=== PATIENT | female | born 1970 | race Caucasian/White ===

== ENCOUNTER 2017-06-07 12:03 | Emergency (ER) | payer OTHER ==
[~2017-06-07] VITALS: Ht 167.6 cm; Wt 131.5 kg
[2017-06-07 12:03] VITALS: BP 142/98
[~2017-06-07 12:03] MED LIST: AMBIEN 10 MG TA10 MG PO; AMOXICILLIN 50500 M1 PO; ANXIETY MED; ATIVAN1 MG PO; AUGMENTIN 875875 M1 PO; BENTYL20 MG PO; CELEXA; CILOXAN5 ML OP; CIPROFLOXACIN500 M1 PO; DARVOCET-N 1001 EACH PO; ESCITALOPRAM OX20 MG PO; FLAGYL500 MG PO; FLEXERIL PO; HYDROCHLOROTH12.5 MG PO; HYDROCHLOROTHIA25 M1 PO; IBUPROFEN 600600 M1 PO; IBUPROFEN 800800 M1 PO; LEVOTHROID125 MCG PO; LEVOTHYROXIN0.125 M1 PO; LISINOPRIL20 MG PO; MEDROLDOSEPACK PO; NAPROSYN500 MG PO; NORCO 5-325 TA1 EACH PO; NORFLEX100 MG PO; PAROXETINE HCL20 MG PO; PEPCID40 MG PO; PERMETHRIN60 GM TOP; PHENERGAN 25 MG25 MG PO; PREDNISONE 20 M20 MG PO; PREDNISONE50 MG PO; TESSALON PERLE100 MG PO; TRAMADOL 50 MG50 MG PO; ULTRAM 50MG TAB50 MG PO; VALIUM5 MG PO; VISTARIL 25 MG25 M1 PO; ZESTORETIC 10-1 EAC1 PO; ZESTORETIC 20-1 EACH PO
[2017-06-07] MEDS ORDERED: SYNTHROID150 MCG PO (12:16)
[2017-06-07] MEDS ORDERED: MOBIC7.5 MG PO (13:01)
== END 2017-06-07 13:46 | disposition home or self-care (01) ==
LOC: ER 12:03
DX: S93.402A Sprain of unspecified ligament of left ankle, initial encounter (principal); I10 Essential (primary) hypertension; E03.9 Hypothyroidism, unspecified; F41.9 Anxiety disorder, unspecified; F17.210 Nicotine dependence, cigarettes, uncomplicated; Z90.49 Acquired absence of other specified parts of digestive tract; Z87.442 Personal history of urinary calculi; Z88.8 Allergy status to other drugs, medicaments and biological substances; Z88.5 Allergy status to narcotic agent; Z88.6 Allergy status to analgesic agent; W01.0XXA Fall on same level from slipping, tripping and stumbling without subsequent striking against object, initial encounter; Y93.89 Activity, other specified; Y92.238 Other place in hospital as the place of occurrence of the external cause; Y99.8 Other external cause status

== ENCOUNTER 2018-12-22 17:26 | Emergency (ER) | payer OTHER ==
[~2018-12-22] VITALS: Ht 167.6 cm; Wt 149.7 kg
[~2018-12-22 17:26] MED LIST changes: +MOBIC7.5 MG PO; +SYNTHROID150 MCG PO
[2018-12-22 17:51] LABS: URINE BILIRUBIN NEGATIVE (Negative); URINE BLOOD NEGATIVE (Negative); URINE CLARITY CLEAR; URINE COLOR YELLOW; URINE GLUCOSE-RANDOM* NEGATIVE (Negative); URINE KETONES NEGATIVE (Negative); URINE LEUKOCYTES-REFLEX NEGATIVE (Negative); URINE NITRITE-REFLEX NEGATIVE (Negative); URINE PROTEIN (DIPSTICK) NEGATIVE (Negative); URINE SPECIFIC GRAVITY >= 1.030 (1.005-1.035); URINE UROBILINOGEN 0.2 E.U./dl (0.2-1.0)
[2018-12-22 17:56] LABS: ABSOLUTE NEUTROPHILS 10.2 thou/uL (1.4-8.2); BASOPHILS 1.3 % (0.0-2.0); EOSINOPHILS 5.3 % (0.0-3.0); HEMATOCRIT 43.7 % (37.0-47.0); HEMOGLOBIN 14.4 gm/dL (12.0-15.0); MCH 27.8 pg (26.0-34.0); MCHC 32.9 g/dL (28.0-37.0); MCV 84.4 fL (80.0-100.0); MONOCYTES 6.2 % (1.0-8.0); PLATELET COUNT 344 thou/uL (150-400); POLYS 69.2 % (36.0-66.0); RBC 5.17 mil/uL (4.20-5.00); RDW 14.8 % (10.5-14.5); WBC 14.8 thou/uL (4.0-11.0)
[2018-12-22 18:04] LABS: CALCIUM 9.3 mg/dL (8.5-10.1); CREATININE 0.8 mg/dL (0.6-1.0); POTASSIUM 3.7 mmol/L (3.5-5.1)
[2018-12-22 18:10] LABS: ALBUMIN 3.6 g/dL (3.4-5.0); TOTAL BILIRUBIN 0.7 mg/dL (<0.1-1.0)
[2018-12-22] MEDS ORDERED: METFORMIN HCL500 MG PO (18:25)
[2018-12-22] MEDS ORDERED: VERAPAMIL E.R240 M1 PO (18:26)
[2018-12-22] MEDS ORDERED: PROPRANOLOL 1010 MG PO (18:27)
[2018-12-22] MEDS ORDERED: HYZAAR 100-12.1 EACH PO (18:27)
[2018-12-22] MEDS ORDERED: PHENERGAN 25 MG25 M1 PO (19:41)
[2018-12-22] MEDS ORDERED: BENTYL 20 MG TA20 M1 PO (19:41)
[2018-12-22 20:28] VITALS: BP 118/60
== END 2018-12-22 20:27 | disposition home or self-care (01) ==
LOC: ER 17:26
PROVIDERS: Physician Assistant
DX: D72.829 Elevated white blood cell count, unspecified (principal); R10.9 Unspecified abdominal pain; R19.7 Diarrhea, unspecified; R11.0 Nausea; E03.9 Hypothyroidism, unspecified; I10 Essential (primary) hypertension; F17.210 Nicotine dependence, cigarettes, uncomplicated; Z90.49 Acquired absence of other specified parts of digestive tract; Z87.442 Personal history of urinary calculi; Z88.5 Allergy status to narcotic agent; Z88.8 Allergy status to other drugs, medicaments and biological substances

== ENCOUNTER 2020-02-14 20:08 | Emergency (ER) | payer OTHER ==
[~2020-02-14] VITALS: Ht 167.6 cm; Wt 149.7 kg
[~2020-02-14 20:08] MED LIST changes: +BENTYL 20 MG TA20 M1 PO; +HYZAAR 100-12.1 EACH PO; +METFORMIN HCL500 MG PO; +PHENERGAN 25 MG25 M1 PO; +PROPRANOLOL 1010 MG PO; +VERAPAMIL E.R240 M1 PO
[2020-02-14] MEDS ORDERED: BENICAR40 MG PO (20:27)
[2020-02-14 20:28] LABS: URINE BILIRUBIN NEGATIVE (Negative); URINE BLOOD NEGATIVE (Negative); URINE CLARITY CLEAR; URINE COLOR YELLOW; URINE GLUCOSE-RANDOM* NEGATIVE (Negative); URINE KETONES NEGATIVE (Negative); URINE LEUKOCYTES-REFLEX NEGATIVE (Negative); URINE NITRITE-REFLEX NEGATIVE (Negative); URINE PROTEIN (DIPSTICK) NEGATIVE (Negative); URINE SPECIFIC GRAVITY 1.025 (1.005-1.035); URINE UROBILINOGEN 0.2 E.U./dl (0.2-1.0)
[2020-02-14 21:35] LABS: ABSOLUTE NEUTROPHILS 8.2 thou/uL (1.4-8.2); BASOPHILS 0.9 % (0.0-2.0); EOSINOPHILS 6.3 % (0.0-3.0); HEMATOCRIT 41.5 % (37.0-47.0); HEMOGLOBIN 13.8 gm/dL (12.0-15.0); LYMPHOCYTES 23.2 % (24.0-44.0); MCH 28.7 pg (26.0-34.0); MCHC 33.4 g/dL (28.0-37.0); MCV 86.1 fL (80.0-100.0); MONOCYTES 7.7 % (1.0-8.0); PLATELET COUNT 382 thou/uL (150-400); POLYS 61.9 % (36.0-66.0); RBC 4.82 mil/uL (4.20-5.00); RDW 14.3 % (10.5-14.5); WBC 13.2 thou/uL (4.0-11.0)
[2020-02-14 21:45] LABS: CALCIUM 8.8 mg/dL (8.5-10.1); POTASSIUM 3.9 mmol/L (3.5-5.1)
[2020-02-14 21:53] LABS: ALBUMIN 3.5 g/dL (3.4-5.0); TOTAL BILIRUBIN 0.5 mg/dL (<0.1-1.0)
[2020-02-14] MEDS ORDERED: ULTRAM 50MG TAB50 MG PO (23:40)
[2020-02-14] MEDS ORDERED: CIPROFLOXACIN500 M1 PO (23:40)
[2020-02-14] MEDS ORDERED: FLAGYL500 M1 PO (23:40)
[2020-02-14] MEDS ORDERED: ZOFRAN ODT4 MG PO (23:40)
[2020-02-14 23:51] VITALS: BP 124/56
== END 2020-02-14 23:53 | disposition home or self-care (01) ==
LOC: ER 20:08
PROVIDERS: Emergency Medicine
DX: R10.32 Left lower quadrant pain (principal); R11.2 Nausea with vomiting, unspecified; I10 Essential (primary) hypertension; F17.210 Nicotine dependence, cigarettes, uncomplicated; Z79.899 Other long term (current) drug therapy; Z88.6 Allergy status to analgesic agent; Z88.8 Allergy status to other drugs, medicaments and biological substances; Z90.49 Acquired absence of other specified parts of digestive tract

== ENCOUNTER 2020-05-18 00:43 | Emergency (ER) | payer OTHER ==
[~2020-05-18] VITALS: Ht 167.6 cm; Wt 149.7 kg
[~2020-05-18 00:43] MED LIST changes: +BENICAR40 MG PO; +FLAGYL500 M1 PO; +ZOFRAN ODT4 MG PO
[2020-05-18] MEDS ORDERED: ADVAIR 250-501 EACH INH (01:10)
[2020-05-18] MEDS ORDERED: PROAIR HFA8.5 GM INH (01:11)
[2020-05-18 01:30] LABS: URINE BILIRUBIN NEGATIVE (Negative); URINE BLOOD NEGATIVE (Negative); URINE CLARITY CLEAR; URINE COLOR YELLOW; URINE GLUCOSE-RANDOM* NEGATIVE (Negative); URINE KETONES NEGATIVE (Negative); URINE LEUKOCYTES-REFLEX NEGATIVE (Negative); URINE NITRITE-REFLEX NEGATIVE (Negative); URINE PROTEIN (DIPSTICK) NEGATIVE (Negative); URINE UROBILINOGEN 0.2 E.U./dl (0.2-1.0)
[2020-05-18 01:56] LABS: BASOPHILS 1.2 % (0.0-2.0); EOSINOPHILS 4.7 % (0.0-3.0); HEMATOCRIT 42.1 % (37.0-47.0); HEMOGLOBIN 13.7 gm/dL (12.0-15.0); LYMPHOCYTES 20.9 % (24.0-44.0); MCH 28.3 pg (26.0-34.0); MCHC 32.6 g/dL (28.0-37.0); MCV 86.9 fL (80.0-100.0); MONOCYTES 7.4 % (1.0-8.0); PLATELET COUNT 378 thou/uL (150-400); POLYS 65.8 % (36.0-66.0); RBC 4.85 mil/uL (4.20-5.00); RDW 14.7 % (10.5-14.5); WBC 16.8 thou/uL (4.0-11.0)
[2020-05-18 01:57] LABS: ANION GAP 13 mmol/L (7-16); BUN 14 mg/dL (7-18); CALCIUM 8.9 mg/dL (8.5-10.1); CHLORIDE 99 mmol/L (98-107); CO2 24 mmol/L (21-32); GLUCOSE 103 mg/dL (74-106); SODIUM 136 mmol/L (136-145)
[2020-05-18 02:06] LABS: ALBUMIN 3.5 g/dL (3.4-5.0); LIPASE 152 U/L (73-393); SGOT 18 U/L (15-37); SGPT 26 U/L (30-65); TOTAL BILIRUBIN 0.6 mg/dL (0.2-1.0); TOTAL PROTEIN 8.2 g/dL (6.4-8.2); TROPONIN-I <0.06 ng/mL (<0.06)
[2020-05-18] MEDS ORDERED: TRAMADOL 50 MG50 MG PO (04:37)
[2020-05-18] MEDS ORDERED: NAPROSYN500 MG PO (04:37)
[2020-05-18 05:06] VITALS: BP 109/71
--- NOTE | 2020-05-18 08:25 | EKG ---
[facility] [place] [address] ELECTROCARDIOGRAM REPORT Name: BHARATH MARRERO Room #: [facility]P [facility]#: [id number] Admission: 05/18/20 Attend Phys: Discharge: 05/18/20 Date of : 72 Report #: [id number] THIS REPORT FOR: cc: Graciela Jones Deborah C Lundgren,Elvin Alex MD [facility] THIS REPORT FOR: //name// [facility] ED Test Date: 2020-05-18 Test Time: 02:05:43 Pat Name: BHARATH MARRERO Department: Room: Gender: F Grey Percher: CHIP : 1970 Requested By: Manuel Santoro Order Number: [id number] MD: Elvin Serrano Measurements Intervals [place] Rate: 79 P: 5 UT: 178 QRS: 74 QRSD: 106 T: 13 QT: 396 QTc: 455 Interpretive Statements Sinus rhythm No significant abnormality Compared to ECG 09/27/2012 23:42:04 No significant change was found Electronically Signed On 05-18-2020 8:25:43 CDT by Elvin Serrano [email or web address] <ELECTRONICALLY SIGNED> By: Elvin Serrano MD, [facility] 05/18/2025 4 Elvin Serrano MD, [facility] /EPI
== END 2020-05-18 05:07 | disposition home or self-care (01) ==
LOC: ER 00:43
PROVIDERS: Emergency Medicine
DX: N83.202 Unspecified ovarian cyst, left side (principal); D72.829 Elevated white blood cell count, unspecified; R11.0 Nausea; F17.210 Nicotine dependence, cigarettes, uncomplicated; Z90.89 Acquired absence of other organs; Z79.899 Other long term (current) drug therapy; Z88.8 Allergy status to other drugs, medicaments and biological substances; Z88.5 Allergy status to narcotic agent

== ENCOUNTER 2020-06-30 15:29 | Emergency (ER) | payer OTHER ==
[~2020-06-30] VITALS: Ht 167.6 cm; Wt 158.8 kg
[~2020-06-30 15:29] MED LIST changes: +ADVAIR 250-501 EACH INH; +PROAIR HFA8.5 GM INH
[2020-06-30] MEDS ORDERED: ULTRAM 50MG TAB50 MG PO (17:40)
[2020-06-30 18:04] VITALS: BP 145/89
== END 2020-06-30 19:11 | disposition home or self-care (01) ==
LOC: ER 15:29
DX: M25.511 Pain in right shoulder (principal); I10 Essential (primary) hypertension; E03.9 Hypothyroidism, unspecified; F17.210 Nicotine dependence, cigarettes, uncomplicated; Z88.6 Allergy status to analgesic agent; Z88.5 Allergy status to narcotic agent; Z88.8 Allergy status to other drugs, medicaments and biological substances; Z87.442 Personal history of urinary calculi; Z90.49 Acquired absence of other specified parts of digestive tract

== ENCOUNTER 2020-08-21 11:17 | Emergency (ER) | payer OTHER ==
[~2020-08-21] VITALS: Ht 167.6 cm; Wt 161.9 kg
[2020-08-21] MEDS ORDERED: DOXYCYCLINE 10100 MG PO (13:28)
[2020-08-21] MEDS ORDERED: PERCOCET 5-3251 EACH PO (13:28)
[2020-08-21 13:50] VITALS: BP 106/59
== END 2020-08-21 13:54 | disposition home or self-care (01) ==
LOC: ER 11:17
DX: N73.9 Female pelvic inflammatory disease, unspecified (principal); I10 Essential (primary) hypertension; E03.9 Hypothyroidism, unspecified; F17.210 Nicotine dependence, cigarettes, uncomplicated; Z90.49 Acquired absence of other specified parts of digestive tract; Z90.89 Acquired absence of other organs; Z79.899 Other long term (current) drug therapy; Z88.5 Allergy status to narcotic agent; Z88.8 Allergy status to other drugs, medicaments and biological substances

== ENCOUNTER 2020-08-24 15:56 | Emergency (ER) | payer OTHER ==
[~2020-08-24] VITALS: Ht 167.6 cm; Wt 161.9 kg
[~2020-08-24 15:56] MED LIST changes: +DOXYCYCLINE 10100 MG PO; +PERCOCET 5-3251 EACH PO
[2020-08-24 16:00] VITALS: BP 144/79
== END 2020-08-24 16:11 | disposition home or self-care (01) ==
LOC: ER 15:56
DX: N73.9 Female pelvic inflammatory disease, unspecified (principal); Z48.01 Encounter for change or removal of surgical wound dressing; I10 Essential (primary) hypertension; E03.9 Hypothyroidism, unspecified; F41.9 Anxiety disorder, unspecified; F17.210 Nicotine dependence, cigarettes, uncomplicated; Z90.49 Acquired absence of other specified parts of digestive tract; Z98.890 Other specified postprocedural states; Z87.442 Personal history of urinary calculi; Z79.899 Other long term (current) drug therapy; Z88.8 Allergy status to other drugs, medicaments and biological substances; Z88.5 Allergy status to narcotic agent; Z88.6 Allergy status to analgesic agent

== ENCOUNTER 2020-10-07 18:45 | Emergency (ER) | payer OTHER ==
[~2020-10-07] VITALS: Ht 167.6 cm; Wt 149.7 kg
[2020-10-07 19:15] LABS: URINE BILIRUBIN NEGATIVE (Negative); URINE BLOOD NEGATIVE (Negative); URINE CLARITY SL CLOUDY; URINE COLOR YELLOW; URINE GLUCOSE-RANDOM* NEGATIVE (Negative); URINE KETONES NEGATIVE (Negative); URINE LEUKOCYTES-REFLEX NEGATIVE (Negative); URINE NITRITE-REFLEX NEGATIVE (Negative); URINE PROTEIN (DIPSTICK) NEGATIVE (Negative); URINE SPECIFIC GRAVITY >= 1.030 (1.005-1.035); URINE UROBILINOGEN 0.2 E.U./dl (0.2-1.0)
[2020-10-07] MEDS ORDERED: GLUCOPHAGE XR750 MG PO (19:18)
[2020-10-07] MEDS ORDERED: ADVAIR 250-501 EACH INH (19:19)
[2020-10-07] MEDS ORDERED: TRAMADOL 50 MG50 MG PO (19:20)
[2020-10-07] MEDS ORDERED: MEDROLDOSEPACK PO (20:33)
[2020-10-07 20:46] VITALS: BP 104/55
== END 2020-10-07 20:58 | disposition home or self-care (01) ==
LOC: ER 18:45
PROVIDERS: Nurse Practitioner
DX: M54.16 Radiculopathy, lumbar region (principal); F17.210 Nicotine dependence, cigarettes, uncomplicated; Z88.6 Allergy status to analgesic agent; Z88.5 Allergy status to narcotic agent; Z88.8 Allergy status to other drugs, medicaments and biological substances; Z79.899 Other long term (current) drug therapy; Z90.49 Acquired absence of other specified parts of digestive tract; Z87.442 Personal history of urinary calculi; Z98.890 Other specified postprocedural states

== ENCOUNTER 2021-03-05 15:24 | Emergency (ER) | payer OTHER ==
[~2021-03-05] VITALS: Ht 167.6 cm; Wt 154.2 kg
[~2021-03-05 15:24] MED LIST changes: +CITALOPRAM PO; +GLUCOPHAGE XR750 MG PO; +METFORMIN 500 MG PO
[2021-03-05] MEDS ORDERED: TRAZODONE HCL50 MG PO (15:36)
[2021-03-05 16:03] LABS: BASOPHILS 1.2 % (0.0-2.0); EOSINOPHILS 5.3 % (0.0-3.0); HEMATOCRIT 38.8 % (37.0-47.0); HEMOGLOBIN 12.6 gm/dL (12.0-15.0); LYMPHOCYTES 17.3 % (24.0-44.0); MCH 28.1 pg (26.0-34.0); MCHC 32.6 g/dL (28.0-37.0); MCV 86.3 fL (80.0-100.0); MONOCYTES 8.9 % (1.0-8.0); PLATELET COUNT 353 thou/uL (150-400); POLYS 67.3 % (36.0-66.0); RDW 14.8 % (10.5-14.5); WBC 14.8 thou/uL (4.0-11.0)
[2021-03-05 16:03] LABS: URINE BILIRUBIN NEGATIVE (Negative); URINE BLOOD NEGATIVE (Negative); URINE CLARITY CLEAR; URINE COLOR YELLOW; URINE GLUCOSE-RANDOM* NEGATIVE (Negative); URINE KETONES NEGATIVE (Negative); URINE LEUKOCYTES-REFLEX NEGATIVE (Negative); URINE NITRITE-REFLEX NEGATIVE (Negative); URINE PROTEIN (DIPSTICK) NEGATIVE (Negative); URINE SPECIFIC GRAVITY 1.025 (1.005-1.035); URINE UROBILINOGEN 0.2 E.U./dl (0.2-1.0)
[2021-03-05 16:11] LABS: CALCIUM 8.4 mg/dL (8.5-10.1); POTASSIUM 4.2 mmol/L (3.5-5.1)
[2021-03-05 16:17] LABS: ALBUMIN 3.2 g/dL (3.4-5.0); TOTAL BILIRUBIN 0.5 mg/dL (0.2-1.0); TOTAL PROTEIN 7.3 g/dL (6.4-8.2)
[2021-03-05 19:52] VITALS: BP 125/64
== END 2021-03-05 19:55 | disposition short-term general hospital (02) ==
LOC: ER 15:24
PROVIDERS: Emergency Medicine
DX: N83.202 Unspecified ovarian cyst, left side (principal); E11.9 Type 2 diabetes mellitus without complications; Z88.6 Allergy status to analgesic agent; Z88.5 Allergy status to narcotic agent; Z88.8 Allergy status to other drugs, medicaments and biological substances

== ENCOUNTER 2021-07-26 10:56 | Emergency (ER) | payer OTHER ==
[~2021-07-26] VITALS: Ht 167.6 cm; Wt 158.8 kg
[~2021-07-26 10:56] MED LIST changes: +TRAZODONE HCL50 MG PO
[2021-07-26 11:39] LABS: ABSOLUTE NEUTROPHILS 10.9 thou/uL (1.4-8.2); BASOPHILS 1.3 % (0.0-2.0); EOSINOPHILS 5.2 % (0.0-3.0); LYMPHOCYTES 15.7 % (24.0-44.0); MCHC 32.6 g/dL (28.0-37.0); MCV 85.9 fL (80.0-100.0); MONOCYTES 4.6 % (1.0-8.0); PLATELET COUNT 311 thou/uL (150-400); POLYS 73.2 % (36.0-66.0); RBC 4.66 mil/uL (4.20-5.00); RDW 16.3 % (10.5-14.5); WBC 14.9 thou/uL (4.0-11.0)
[2021-07-26 12:31] VITALS: BP 140/73
[2021-07-26 12:45] LABS: CALCIUM 8.3 mg/dL (8.5-10.1); CREATININE 0.8 mg/dL (0.6-1.0); POTASSIUM 4.1 mmol/L (3.5-5.1)
[2021-07-26 12:51] LABS: TOTAL BILIRUBIN 0.4 mg/dL (0.2-1.0); TOTAL PROTEIN 7.1 g/dL (6.4-8.2)
[2021-07-26] MEDS ORDERED: AUGMENTIN 875-1 EACH PO (14:40)
[2021-07-26] MEDS ORDERED: PREDNISONE50 MG PO (14:40)
== END 2021-07-26 14:41 | disposition home or self-care (01) ==
LOC: ER 10:56
PROVIDERS: Physician Assistant
DX: K12.2 Cellulitis and abscess of mouth (principal); R07.0 Pain in throat; E11.9 Type 2 diabetes mellitus without complications; Z79.899 Other long term (current) drug therapy; Z88.5 Allergy status to narcotic agent; Z88.6 Allergy status to analgesic agent

== ENCOUNTER 2021-10-24 13:49 | Emergency (ER) | payer OTHER ==
[~2021-10-24] VITALS: Ht 167.6 cm; Wt 154.2 kg
[~2021-10-24 13:49] MED LIST changes: +AUGMENTIN 875-1 EACH PO; -METFORMIN 500 MG PO; +METFORMIN 850 MG PO
[2021-10-24 14:44] LABS: ABSOLUTE NEUTROPHILS 9.3 thou/uL (1.4-8.2); BASOPHILS 1.1 % (0.0-2.0); EOSINOPHILS 3.9 % (0.0-3.0); HEMATOCRIT 39.2 % (37.0-47.0); HEMOGLOBIN 12.9 gm/dL (12.0-15.0); LYMPHOCYTES 16.9 % (24.0-44.0); MCHC 32.8 g/dL (28.0-37.0); MCV 85.4 fL (80.0-100.0); MONOCYTES 6.4 % (1.0-8.0); PLATELET COUNT 306 thou/uL (150-400); POLYS 71.7 % (36.0-66.0); RBC 4.59 mil/uL (4.20-5.00); RDW 15.1 % (10.5-14.5)
[2021-10-24 14:55] LABS: CALCIUM 8.6 mg/dL (8.5-10.1); CREATININE 0.9 mg/dL (0.6-1.0)
[2021-10-24 15:02] LABS: ALBUMIN 3.3 g/dL (3.4-5.0); MAGNESIUM 1.5 mg/dL (1.8-2.4); TOTAL BILIRUBIN 0.8 mg/dL (0.2-1.0); TOTAL PROTEIN 7.4 g/dL (6.4-8.2)
[2021-10-24 15:13] VITALS: BP 131/67
[2021-10-24 15:45] LABS: URINE BILIRUBIN NEGATIVE (Negative); URINE BLOOD NEGATIVE (Negative); URINE CLARITY CLEAR; URINE COLOR YELLOW; URINE GLUCOSE-RANDOM* NEGATIVE (Negative); URINE KETONES NEGATIVE (Negative); URINE LEUKOCYTES-REFLEX NEGATIVE (Negative); URINE NITRITE-REFLEX NEGATIVE (Negative); URINE PROTEIN (DIPSTICK) NEGATIVE (Negative); URINE SPECIFIC GRAVITY 1.025 (1.005-1.035); URINE UROBILINOGEN 0.2 E.U./dl (0.2-1.0)
[2021-10-24 15:59] LABS: AMP/METHAMP Negative (Negative); BARBITURATES Negative (Negative); BENZODIAZEPINES Negative (Negative); COCAINE Negative (Negative); METHADONE Negative (Negative); OPIATES Negative (Negative); PCP Negative (Negative)
--- NOTE | 2021-10-24 16:34 | EKG ---
[place] [address] [facility] [place] [address] ELECTROCARDIOGRAM REPORT Name: BHARATH MARRERO [id number] Admission: 10/24/21 Attend Phys: Discharge: Date of : 72 Report #: [id number] [facility] ED Test Date: 2021-10-24 Test Time: 15:05:56 Pat Name: BHARATH MARRERO Department: Room: Gender: F Paper Cleaner: unknown : 1970 Requested By: Elin Carmen Order Number: [id number] MD: Elvin Serrano Measurements Intervals [place] Rate: 69 P: -15 IA: 168 QRS: 73 QRSD: 102 T: 29 QT: 399 QTc: 428 Interpretive Statements Sinus rhythm Right ventricular conduction delay Compared to ECG 05/18/2020 02:05:43 No significant change was found Electronically Signed On 10-24-2021 16:33:45 DEHORNER by Elvin Serrano [email or web address] <ELECTRONICALLY SIGNED> By: Elvin Serrano MD, [facility] 10/24/21 1633 [id number] [id number] Elvin Serrano MD, [facility] /EPI
== END 2021-10-24 16:40 | disposition home or self-care (01) ==
LOC: ER 13:49
PROVIDERS: Emergency Medicine
DX: R41.82 Altered mental status, unspecified (principal); E11.9 Type 2 diabetes mellitus without complications; Z79.899 Other long term (current) drug therapy; Z88.5 Allergy status to narcotic agent; Z88.6 Allergy status to analgesic agent

== ENCOUNTER 2021-10-26 16:02 | Observation (INO) | payer OTHER ==
[~2021-10-26] VITALS: Ht 167.6 cm; Wt 149.7 kg
[2021-10-26 16:05] VITALS: BP 136/80
[2021-10-26 17:24] LABS: HEMATOCRIT 41.3 % (37.0-47.0); HEMOGLOBIN 13.7 gm/dL (12.0-15.0); MCH 28.3 pg (26.0-34.0); MCV 85.7 fL (80.0-100.0); RBC 4.82 mil/uL (4.20-5.00); RDW 15.5 % (10.5-14.5)
[2021-10-26 17:27] LABS: URINE BILIRUBIN NEGATIVE (Negative); URINE BLOOD NEGATIVE (Negative); URINE CLARITY CLEAR; URINE COLOR YELLOW; URINE GLUCOSE-RANDOM* NEGATIVE (Negative); URINE KETONES NEGATIVE (Negative); URINE LEUKOCYTES-REFLEX NEGATIVE (Negative); URINE NITRITE-REFLEX NEGATIVE (Negative); URINE PROTEIN (DIPSTICK) NEGATIVE (Negative); URINE SPECIFIC GRAVITY 1.025 (1.005-1.035); URINE UROBILINOGEN 0.2 E.U./dl (0.2-1.0)
[2021-10-26 17:51] LABS: CALCIUM 8.9 mg/dL (8.5-10.1); CREATININE 0.9 mg/dL (0.6-1.0); POTASSIUM 4.1 mmol/L (3.5-5.1)
[2021-10-26 17:56] LABS: ALBUMIN 3.7 g/dL (3.4-5.0); MAGNESIUM 1.6 mg/dL (1.8-2.4); TOTAL BILIRUBIN 0.9 mg/dL (0.2-1.0); TOTAL PROTEIN 7.7 g/dL (6.4-8.2)
[2021-10-26 21:47] VITALS: BP 132/80
[2021-10-26 22:49] VITALS: BP 132/75
[2021-10-27 02:07] LABS: HEMOGLOBIN 12.4 gm/dL (12.0-15.0); MCH 28.2 pg (26.0-34.0); MCHC 32.7 g/dL (28.0-37.0); MCV 86.4 fL (80.0-100.0); RBC 4.4 mil/uL (4.20-5.00); RDW 15.3 % (10.5-14.5); WBC 11.9 thou/uL (4.0-11.0)
[2021-10-27 02:12] LABS: CALCIUM 8.6 mg/dL (8.5-10.1); CREATININE 0.9 mg/dL (0.6-1.0); POTASSIUM 3.9 mmol/L (3.5-5.1)
[2021-10-27 07:26] VITALS: BP 132/76
--- NOTE | 2021-10-27 13:33 | NUR ---
CT CALLED IN REGARDS TO PATIENT; OK FOR CT HEAD, PER CT CAN NOT DO MRI TODAY BECAUSE MACHINE IS BEING WORKED ON.
--- NOTE | 2021-10-27 17:39 | NUR ---
PT MEDS SENT HOME WITH PATIENT'S MOTHER. PT HOME [facility]MIN APPROVED TO TAKE BY DR. DORAN AND PHARMACY. FORM SIGNED AND IN PATIENT IV BIN.
[2021-10-27 19:09] VITALS: BP 110/65
[2021-10-28 05:07] LABS: GLYCOHEMOGLOBIN (HGB A1C) 6.1 % (4.8-5.6)
[2021-10-28 08:03] VITALS: BP 99/62
--- NOTE | 2021-10-28 08:36 | NUR ---
BMI 53.3, extreme class III obesity. Admit with complaints of intermittent confusion, etiology unknown, testing ongoing. Eating 100% of carb control diet. A1C 6.1, indicating good control with her hx of DM indicated. Low nutrition risk
--- NOTE | 2021-10-28 10:44 | NUR ---
pt alert and oriented this morning. c/o headache and lack of sleep but otherwise w/o complaint. attempted mri this morning but unable to tolerate d/t claustraphobia. md notified and iv ativan given. pt then able to tolerate. MRI completed. will cont to monitor
--- NOTE | 2021-10-28 11:39 | NUR ---
Met with patient briefly she reports she has not had any sleep and wants to rest. Patient admits with confusion. 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 She reports she drives. She has a PCP. She lives with her mother who is supportive and can assist at nv. Gave patient [facility] information and m[facility]in information. Patient has no health insurance.
--- NOTE | 2021-10-28 11:51 | HC ---
[facility] [place] [address] CONSULTATION Name: BHARATH MARRERO Room #: 436-P [facility] M.R.#: [id number] Admission: 10/26/21 Attend Phys: Isrrael Allen MD Discharge: Date of : 72 Report #: [id number] THIS REPORT FOR: cc: RACHAEL - No family physician/PCP FAM - No family physician/PCP Justin Coy MD ~ DATE OF SERVICE: 10/27/2021 HISTORY OF PRESENT ILLNESS: This is a 51-year-old female patient who was evaluated by me for episodes of confusion. She said she has multiple episodes of confusion. She is confused, but she is still able to talk. There is no other focal neurological deficit associated with it. She does not know what brings it on and what makes it better. Review of systems are positive for multiple problems. She apparently has a history of hypertension, diabetes, anxiety, hypothyroidism, COPD. She had an ovarian cyst removed. She still has her periods. She is very emphatic that there is no chance of any . She has headache, but I reviewed her notes as far back as 2013, she had headaches. When I saw this patient, she was not having much headache. She has low magnesium, but that was replaced. When she has headache, it is generalized and there is no aggravating or relieving factors for that headache. REVIEW OF SYSTEMS: A 14-point review of system was carried out and she was not complaining of any ophthalmological, ENT, cardiac, respiratory, , musculoskeletal, constitutional, dermatological, hematological symptom associated with these symptoms. She does not think that symptoms are because of anxiety and depression. PAST MEDICAL HISTORY: Positive for multiple surgeries including thyroidectomy, cholecystectomy, tubal ligation, appendectomy, tonsillectomy, cyst removal. FAMILY HISTORY: Unremarkable. SOCIAL HISTORY: She says she used to smoke, but stopped smoking at 5 years ago. She does not drink any alcohol. PHYSICAL EXAMINATION: The patient's examination indicates that she is alert, responsive, able to follow simple and complex commands. Her speech looks intact. She believes her memory and fund of knowledge is at her baseline. Cranial nerve examination II-XII looks unremarkable. Strength, sensation, reflexes and tone is symmetrical. She has a good position sense in both lower extremities. Reflexes are somewhat diminished. Plantars are mute. She does not appear to have any ataxia. I could not look at the patient's fundus. There is no meningeal sign. She is morbidly obese. She has no edema. She has no evidence of vascular insufficiency. No respiratory difficulty. Cardiac examination is unremarkable. Blood pressure is 132/76, pulse is 88, temperature is 98.1. [facility] [address] [place] [address] CONSULTATION Name: BHARATH MARRERO Room #: 436-P [facility] M.R.#: [id number] Admission: 10/26/21 Attend Phys: Isrrael Allen MD Discharge: Date of : 72 Report #: [id number] LABORATORY DATA: Indicate a white count is slightly high at 11.9. IMPRESSION: Episodes of confusion of unknown etiology. I am not sure whether they are psychiatric in origin or neurological in origin, but it is desirable to exclude any neurological etiology for her symptoms. I discussed the situation with her. I discussed the options with her. I told her we will proceed with a CT angiogram of the head and neck. Her test is negative and I discussed with her that a negative test does not fully exclude a , but she said she is not concerned with that. I also talked about MRI. We will go ahead and schedule an MRI. I will get an EEG done. If all these tests are negative, then I think psychiatric cause need to be considered in this patient, but because of her young age and multiple episodes, we need to exclude neurological pathology. Neurology will follow up after these testings are done. I believe Dr. Shane is operations research scientist and she will follow up this patient tomorrow. Thank you very much for this referral. <ELECTRONICALLY SIGNED> By: Justin Coy MD 10/28/21 1151 1221 35 Justin Coy MD /nt
--- NOTE | 2021-10-28 11:52 | EEG ---
[facility] [place] [address] ELECTROENCEPHALOGRAM Name: BHARATH MARRERO Room #: 436-P [facility] M.R.#: [id number] Admission: 10/26/21 Attend Phys: Isrrael Allen MD Discharge: Date of : 72 Report #: [id number] THIS REPORT FOR: //name// DATE OF SERVICE: 10/27/2021 This patient is being evaluated for episodes of confusion. A lot of artifact is present in the patient's EEG making it difficult to interpret. The artifact is mostly because of muscle. Whenever the EEG is interpretable, it demonstrated background activity of about 10 Hz and 30 microvolt. The patient went to sleep that is associated with bilateral slowing. Photic stimulation was unremarkable. Throughout the record, no active epileptiform activity was noticed. IMPRESSION: This patient's EEG is within normal limits. Thank you very much for this referral. <ELECTRONICALLY SIGNED> By: Justin Coy MD 10/28/21 1152 1030 1042 Justin Coy MD /nt
[2021-10-28 13:58] VITALS: BP 110/68
[2021-10-28 14:22] VITALS: BP 110/68
== END 2021-10-28 15:33 | disposition home or self-care (01) ==
LOC: ER 16:02 → EROBS 21:24 → 4S 21:24
PROVIDERS: Nurse Practitioner Family; ADMIT Hospitalist; ATTEND Hospitalist
DX: G93.41 Metabolic encephalopathy (principal); G43.909 Migraine, unspecified, not intractable, without status migrainosus; E03.9 Hypothyroidism, unspecified; Z20.822 Contact with and (suspected) exposure to COVID-19; I10 Essential (primary) hypertension; F32.9 Major depressive disorder, single episode, unspecified; J44.9 Chronic obstructive pulmonary disease, unspecified; E83.42 Hypomagnesemia; E11.9 Type 2 diabetes mellitus without complications; F41.9 Anxiety disorder, unspecified; D72.829 Elevated white blood cell count, unspecified; Z79.84 Long term (current) use of oral hypoglycemic drugs; Z79.899 Other long term (current) drug therapy; Z88.5 Allergy status to narcotic agent; Z88.8 Allergy status to other drugs, medicaments and biological substances